=== PATIENT | female | born 2005 | race Caucasian/White ===

== ENCOUNTER 2025-04-29 14:50 | Emergency (ER) | payer BC ==
[2025-04-29 14:56] VITALS: RESP 18; BMI 20.3
[2025-04-29 15:24] LABS: ABSOLUTE IMMATURE GRANULOCYTES 0.01 x10^3/uL (0.0-0.031); BASOPHILS # 0.03 x10^3/uL (0.01-0.08); EOSINOPHIL % 0.9 % (0.7-5.8); EOSINOPHILS # 0.05 x10^3/uL (0.04-0.36); MCHC 32.3 g/dl (32.2-35.5); MEAN CELL VOLUME 87.2 fl (79.4-94.8); MEAN PLT VOLUME 10.1 fl (9.4-12.3); MONOCYTE # 0.45 x10^3/uL (0.24-0.86); MONOCYTE % 8.0 % (4.7-12.5); RDW 13.9 % (12.1-16.5)
[2025-04-29] MEDS ORDERED: ACETAMINOPHEN 500 MG TABLET (FP) ONE (15:34)
[2025-04-29] MEDS: SODIUM CHLORIDE 0.9% 500 ML INFUS.BAG IV ONE (15:43)
[2025-04-29] MEDS: ACETAMINOPHEN 500 MG TABLET (FP) PO ONE (15:44)
[2025-04-29] MEDS ORDERED: KETOROLAC TROMETHAMINE 30 MG/1 ML VIAL ONE (15:50)
[2025-04-29] MEDS: KETOROLAC TROMETHAMINE 30 MG/1 ML VIAL IVPUSH ONE (15:52)
[2025-04-29 16:39] LABS: CO2 29.0 mmol/L (21-32)
[2025-04-29 16:40] LABS: GLUCOSE,RANDOM 66.0 mg/dL (74-106)
[2025-04-29 16:42] LABS: CREATININE 0.6 mg/dL (0.55-1.3); SGOT/AST 16.0 U/L (15-37)
[2025-04-29 16:43] LABS: SGPT/ALT 22.0 U/L (13-61)
[2025-04-29 16:44] LABS: TOT PROT 7.2 g/dl (6.4-8.2)
[2025-04-29 16:46] LABS: ALK PHOS 77.0 U/L (45-117)
[2025-04-29 17:21] LABS: URINE APPEARANCE CLEAR; URINE BILIRUBIN NEGATIVE (NEGATIVE); URINE COLOR YELLOW; URINE GLUCOSE (UA) NEGATIVE (NEGATIVE); URINE KETONE NEGATIVE (NEGATIVE); URINE LEUK ESTERASE NEGATIVE (NEGATIVE); URINE NITRITE NEGATIVE (NEGATIVE); URINE PROTEIN NEGATIVE (NEGATIVE); URINE UROBILINOGEN 0.2 mg/dL (0.2-1.0)
[2025-04-29 17:24] LABS: HCG,QUALITATIVE URINE Negative
[2025-04-29 18:49] VITALS: BP 108/77; PULSE 79; TEMP 98.3
[2025-04-29] MEDS ORDERED: SULFAMETHOXAZOLE/TRIMETHOPRIM 800MG/160MG D.S. TABLET ONE (20:03)
[2025-04-29] MEDS: SULFAMETHOXAZOLE/TRIMETHOPRIM 800MG/160MG D.S. TABLET PO ONE (20:06)
[2025-04-29 23:42] LABS: HIV INTERPRETATION NEGATIVE (NEGATIVE)
[2025-04-30 20:50] LABS: HCV DIAGNOSTIC IN-HOUSE W/RFLX NON-REACTIVE (NONREACTIVE)
== END 2025-04-29 20:10 | disposition home or self-care (01) ==
LOC: JER 14:50
PROC: 3E0333Z Introduction of Anti-inflammatory into Peripheral Vein, Percutaneous Approach (ICD-10-PCS; principal; 2025-04-29)
DX: N10 Acute pyelonephritis (principal); R68.83 Chills (without fever); R35.0 Frequency of micturition; R00.0 Tachycardia, unspecified; R10.31 Right lower quadrant pain; R10.32 Left lower quadrant pain
CPT/HCPCS: 36415; 74177-TC; 80053; 81003; 84703; 85025; 86803; 87086; 87389; 99285-25; Q9967